=== PATIENT | female | born 1995 | race Caucasian/White ===

== ENCOUNTER 2019-03-29 18:58 | Emergency (ER) | payer SELFPAY ==
[~2019-03-29] VITALS: Ht 152.4 cm; Wt 56.2 kg
[~2019-03-29 18:58] MED LIST: AZIT250T PO; FLUT9.9S NASAL; IBUP-1561 PO
[2019-03-29 19:08] VITALS: BP 129/65; PULSE 59; RESP 18; Ht 152.4 cm; Wt 56.2 kg
== END 2019-03-29 19:15 | disposition home or self-care (01) ==
LOC: E/R 18:58
DX: H92.03 Otalgia, bilateral (principal)
CPT/HCPCS: 99283